=== PATIENT | female | born 1930 | race Caucasian/White ===

== ENCOUNTER 2016-10-06 13:46 | Outpatient (CLI) | payer MEDICARE, OTHER ==
[2016-03-19 09:27] VITALS: BMI 29.8
[~2016-10-06 13:46] MED LIST: ACETAMINOPHEN500 M1 PO; ATARAX 25 MG TA25 MG PO; ATIVAN1 MG PO; ATIVAN2 MG PO; CHROMIUM PICO200 MC1 PO; DIOVAN40 MG PO; ECOTRIN81 MG PO; EFFER-K 25 MEQ25 MEQ PO; HUMULIN 70100 UNIT/1; HUMULIN 70100 UNIT/1 SQ; MAG-OXIDE400 MG PO; MAXZIDE 75/501 TAB; MAXZIDE 75/501 TAB PO; MAXZIDE-25 MG T1 TAB PO; PEPCID20 MG PO; PROTONIX40 MG PO; REGLAN10 MG; STOOL SOFTENER240 MG PO; SURMONTIL50 MG OR
== END 2016-10-06 14:24 ==
LOC: D.MAMMO 13:46
DX: Z12.31 Encounter for screening mammogram for malignant neoplasm of breast (principal)

== ENCOUNTER 2016-12-13 22:23 | Observation (INO) | payer MEDICARE, OTHER ==
[~2016-12-13] VITALS: Ht 160 cm; Wt 65.9 kg
--- NOTE | ~2016-12-13 | CN ---
PATIENT NAME:JUNE AN MEDICAL RECORD: [id number] : 28 LOCATION:D. D.2126 ADMIT DATE: 12/14/16 ACCOUNT: [id number] CONSULTING PHYSICIAN: GIUSEPPE BRAR MD REFERRING PHYSICIAN: LUIS CARLOS PEREIRA MD DATE OF CONSULTATION: 12/14/2016 Cardiology Consultation DIAGNOSES: 1. Chest pain. 2. Hypertension. 3. Diabetes. HISTORY OF PRESENT ILLNESS: Mrs. An presents with chest pain. Her EKG is normal. Troponin is normal. She has been quite hypertensive since being here with her systolic blood pressure in the 180 range. For blood pressure, she is on Maxzide half tablet q. day and Diovan 40 mg tablet, she takes 1-1/2 tablets q. day. PHYSICAL EXAMINATION: GENERAL APPEARANCE: Well-nourished, well-developed, appears stated age. Level of distress, comfortable. PSYCHIATRIC: Mental status, alert, normal affect. Orientation, oriented to time, place and person. EYES: Lids and conjunctiva, noninjected. No discharge, no pallor. ENT: Lips, teeth, gums, normal dentition. Oropharynx, no cyanosis, no pallor. NECK: Carotid arteries, bilateral normal upstroke, no bruits, no thrills. JUGULAR VEINS: No jugular venous pressure or distention. CERVICAL LYMPH NODES: Nontender, nonenlarged. THYROID: Not enlarged. Nontender. No nodules. LUNGS: Respiratory effort, unlabored. CHEST: Normal curvature. No thoracic deformity. No chest wall tenderness. Percussion, resonant. Auscultation, clear. No wheezes, no rales, no rhonchi. CARDIOVASCULAR: Precordial exam, nondisplaced. No heaves or pericardial thrills. Rate and rhythm, regular. Heart sounds, normal S1, normal S2. No S3, no gallop, no rub. Systolic murmur, not heard. Diastolic murmur, not heard. EXTREMITIES: No cyanosis, no edema. Peripheral pulses, full and equal in all extremities, except as noted. No bruits appreciated. ABDOMEN: Soft, nondistended. Normal aorta. No bruit. Nontender. No masses. Liver, nontender, no hepatomegaly. Spleen, nontender, no splenomegaly. MUSCULOSKELETAL: No joint tenderness. No joint swelling. No erythema. NEUROLOGICAL: Normal gait, normal strength, normal tone. SKIN: Warm and dry. REVIEW OF SYSTEMS: The patient reports easy bruising but reports no swollen glands. The patient reports no fever, no night sweats, no significant weight gain, no significant weight loss. No significant exercise tolerance. The patient reports no dry eyes, no irritation, no vision change. Patient reports no difficulty hearing and no ear pain. Patient reports no frequent nose bleeds or nose and sinus problems. Patient reports on arm pain on exertion. No shortness of breath while lying down. No history of heart murmur. Patient reports no cough, no wheezing or coughing up blood. Patient reports no abdominal pain, no vomiting. Normal appetite. No diarrhea and not vomiting blood. No nausea and no constipation. Patient reports no incontinence. No CONSULT REPORT [id number] JUNE AN difficulty urinating. No hematuria. No increased frequency. Patient reports no muscle aches. No weakness, no arthralgias, no back pain. No swelling of the extremities. Patient reports no abnormal mole, no jaundice, no rashes. Reports no loss of consciousness. No weakness and no numbness. No seizures, dizziness, or headaches. The patient reports no depression, no sleep disturbance, feeling safe in a relationship and no alcohol abuse. Patient reports on fatigue. Reports no runny nose or sinus pressure. No itching, no hives, and no frequent sneezing. OVERALL IMPRESSION: Mrs. An has had a normal cardiac catheterization in the past. She has no EKG changes, and normal troponin. I could not say that this is secondary to ischemic heart disease, but I think the hkh-zl-awgcoam hypertension may be contributing to this. She is on a very low dose Diovan. We will try to increase her Diovan to get better blood pressure control, but at this point, I think this is all that is needed from a cardiovascular standpoint. TRANSINT:[id number] Voice Confirmation ID: [id number] DOCUMENT ID: [id number] GIUSEPPE BRAR MD CC: [id number] DICTATION DATE: 12/14/16 1547 STUDENT AFFAIRS VICE PRESIDENT: 12/14/162147 ADM IN [facility] [address] [place] [address]
[2016-12-13 22:57] LABS: BASOPHILS 0.5 % (0-2); EOSINOPHILS 0.6 % (0-7); HEMATOCRIT 40.6 % (36.0-48.0); HEMOGLOBIN 13.7 g/dL (12-16); IMMATURE GRANULOCYTES 0.4 % (0-5); LYMPHOCYTES 24.1 % (15-50); MCH 31.5 pg (26.0-34.0); MCHC 33.7 g/dL (31.0-37.0); MCV 93.3 fL (80.0-100.0); MEAN PLATELET VOLUME 8.9 fL (7.4-10.4); MONOCYTES 9.8 % (2-11); NEUTROPHILS 64.6 % (40-80); PLATELET COUNT 385 10x3/uL (130-400); RBC 4.35 10x6/uL (4.00-5.40); RDW 12.7 % (11.5-14.5); WBC 10.8 10x3/uL (4.8-10.8)
[2016-12-13 23:08] LABS: ALBUMIN 3.1 g/dL (3.4-5.0); ALKALINE PHOSPHATASE 60 U/L (46-116); ALT (SGPT) 25 U/L (10-68); BILIRUBIN - TOTAL 0.27 mg/dL (0.2-1.3); CALC OSMOLALITY 269 mosm/kg (275-300); CALCIUM 9.1 mg/dL (8.5-10.1); CARBON DIOXIDE 33.3 mmol/L (21.0-32.0); CHLORIDE - SERUM 95 mmol/L (98-107); GLUCOSE 123 mg/dL (74-106); POTASSIUM - SERUM 3.6 mmol/L (3.5-5.1); PROTEIN - SERUM 7.1 g/dL (6.4-8.2); SODIUM 132 mmol/L (136-145); UREA NITROGEN 24 mg/dL (7-18); eGFR NON AFRICAN AMERICAN 55 mL/min (90-120)
[2016-12-13 23:18] LABS: CHOL - HDL RATIO 2.9 ratio (2.3-4.1); CHOLESTEROL, TOTAL 178 mg/dL (0-200); CKMB 0.4 U/L (0.0-3.6); CREATINE KINASE 38 UL (21-215); HDL CHOLESTEROL 62 mg/dL (32-96); LDL CHOLESTEROL 103 mg/dL (0-100); LDL-HDL RATIO 1.7 ratio (1.5-3.5); TRIGLYCERIDE 67 mg/dL (30-200)
[2016-12-13 23:19] LABS: TROPONIN-I < 0.017 ng/mL (0.000-0.060)
[2016-12-14 03:10] LABS: APPEARANCE CLEAR (CLEAR); BILIRUBIN NEGATIVE (NEGATIVE); COLOR YELLOW (YELLOW); GLUCOSE NEGATIVE (NEGATIVE); KETONE NEGATIVE (NEGATIVE); LEUKOCYTE ESTERASE 1+ (NEGATIVE); NITRITE NEGATIVE (NEGATIVE); PROTEIN NEGATIVE (NEGATIVE); SPECIFIC GRAVITY 1.005 (1.005-1.020); UROBILINOGEN NORMAL (NORMAL)
[2016-12-14 03:12] LABS: BACTERIA FEW /hpf (NONE SEEN); EPITHELIAL CELLS 0-5 /hpf (0-5); RED CELLS - URINE NONE SEEN /hpf (0-5); WHITE CELLS - URINE 0-5 /hpf (0-5)
--- NOTE | 2016-12-14 03:55 | NUR ---
REPORT RECEIVED FROM MAO RICE.
--- NOTE | 2016-12-14 03:59 | NUR ---
ARRIVED TO FLOOR VIA WHEELCHAIR, ACCOMPANIED BY HOSPITAL STAFF. PLACED ON TELEMETRY, ORIENTED TO UNIT. WILL CONTINUE TO MONITOR, SEE NURSE ASSESSMENT. CALL LIGHT IN REACH.
[2016-12-14 04:00] VITALS: BP 173/77
[2016-12-14 05:05] LABS: CKMB 0.6 U/L (0.0-3.6); CREATINE KINASE 43 UL (21-215)
[2016-12-14 05:13] VITALS: BP 173/77; BMI 25.9
[2016-12-14 05:13] LABS: TROPONIN-I < 0.017 ng/mL (0.000-0.060)
--- NOTE | 2016-12-14 06:39 | NUR ---
NO CHANGES FROM PREVIOUS ASSESSMENT, CALL LIGHT IN REACH.
--- NOTE | 2016-12-14 08:11 | NUR ---
ASESSMENT DONE. DENIES NEEDS.
[2016-12-14 09:18] VITALS: BP 181/88
--- NOTE | 2016-12-14 09:58 | NUR ---
RESTS IN BED WITH CALL LIGHT IN REACH. FSBS 109.
[2016-12-14 11:01] LABS: CKMB 0.5 U/L (0.0-3.6); CREATINE KINASE 36 UL (21-215); TROPONIN-I < 0.017 ng/mL (0.000-0.060)
[2016-12-14 12:00] VITALS: BP 193/87
[2016-12-14 13:57] VITALS: Ht 160 cm; Wt 65.9 kg
[2016-12-14 16:00] VITALS: BP 179/96
[2016-12-14 16:09] LABS: CKMB 0.6 U/L (0.0-3.6); CREATINE KINASE 38 UL (21-215)
[2016-12-14 16:10] LABS: TROPONIN-I < 0.017 ng/mL (0.000-0.060)
--- NOTE | 2016-12-14 17:49 | NUR ---
WITHOUT CHANGES OR DIATRESS NOTED AT THIS TIME.
[2016-12-14 19:00] VITALS: BP 170/85
--- NOTE | 2016-12-14 19:27 | NUR ---
PT IN BED RESTING AROUSES TO VOICE. DENIES NEEDS AT THIS TIME WILL CONTINUE TO MONITOR
[2016-12-15] VITALS: BP 135/63
--- NOTE | 2016-12-15 03:30 | NUR ---
RESTING IN BED WITH NO DISTRESS. RESPS EVEN/NONLABORED. CPOC.
[2016-12-15 04:00] VITALS: BP 169/84
[2016-12-15 04:33] LABS: BASOPHILS 0.4 % (0-2); EOSINOPHILS 0.4 % (0-7); HEMATOCRIT 41.7 % (36.0-48.0); HEMOGLOBIN 14.2 g/dL (12-16); IMMATURE GRANULOCYTES 0.4 % (0-5); LYMPHOCYTES 16.4 % (15-50); MCH 31.4 pg (26.0-34.0); MCHC 34.1 g/dL (31.0-37.0); MCV 92.3 fL (80.0-100.0); MEAN PLATELET VOLUME 9.1 fL (7.4-10.4); MONOCYTES 11.2 % (2-11); NEUTROPHILS 71.2 % (40-80); PLATELET COUNT 378 10x3/uL (130-400); RBC 4.52 10x6/uL (4.00-5.40); RDW 12.7 % (11.5-14.5); WBC 11.1 10x3/uL (4.8-10.8)
[2016-12-15 04:40] LABS: ANION GAP 8.3 mmol/L (8-16); CALCIUM 9.3 mg/dL (8.5-10.1); CARBON DIOXIDE 33.5 mmol/L (21.0-32.0); CREATININE - SERUM 0.8 mg/dL (0.6-1.3); POTASSIUM - SERUM 3.8 mmol/L (3.5-5.1)
[2016-12-15] MEDS ORDERED: DIOVAN80 MG PO (06:58)
--- NOTE | 2016-12-15 07:03 | HP ---
PATIENT: JUNE LIANG MEDICAL RECORD: [id number] ACCOUNT: [id number] LOCATION:D. D.2126 : 28 ADMISSION DATE: 12/14/16 HISTORY AND PHYSICAL EXAMINATION DATE OF ADMISSION: 12/13/2016 CHIEF COMPLAINT: Substernal chest pain. HISTORY OF PRESENT ILLNESS: The patient is an 86-year-old female with longstanding history of having hyperlipidemia. She has also had cardiovascular disease. She is followed by Dr. Negro. The patient states over the last couple of days, she has had tightness in the chest. She presented complaining of nausea as well as tightness in her chest and felt the patient warranted admission. PAST MEDICAL HISTORY: Significant that she has had hypertension. She has also had anxiety, diabetes mellitus, hyperlipidemia, mitral valve prolapse, pacemaker placed, history of tachycardia. She has had varicose veins, vitamin D deficiency. She is a , AB1. FAMILY HISTORY: Father at 93 of old age; he had asthma. Mother at 87 of old age. SOCIAL HISTORY: The patient retired administrative associate. She is a . HABITS: None. 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 MEDICATIONS: Include aspirin 81 mg once a day. She is also on Colace 50 mg 1 p.o. b.i.d., Effer-K 10 mEq 4 p.o. q. day, lorazepam 1 mg tablet 2 every 6 hours p.r.n. anxiety, Monuril recently, NovoLog 70/30 of 15 units in the morning, 18 at noon, and 12 at night, triamterene 75/50, hydrochlorothiazide 1 p.o. q. day, and valsartan 40 mg one-half tablet once a day. ALLERGIES: NUMEROUS, SHE IS ALLERGIC TO AVANDIA, CIPRO, QVAR, DOXYCYCLINE, LEVAQUIN, LOVENOX, PENICILLIN, TOPROL, MACROBID. REVIEW OF SYSTEMS: CONSTITUTIONAL: She denies any headaches, seizures, or syncope. She denies change in visual or auditory acuity. PULMONARY: She denies any sputum production. She has had cough. She has had shortness of breath. CARDIOVASCULAR: She has had no chest pain, palpitations, PND or orthopnea. GASTROINTESTINAL: No chronic nausea, vomiting, melena or hematochezia. GENITOURINARY: No urgency, frequency, or dysuria. PHYSICAL EXAMINATION: GENERAL: Today, she is afebrile. VITAL SIGNS: Stable. Blood pressure slightly elevated at 170/70. HEENT: Her head is normocephalic. No lesions. Ears: TMs clear. Eyes: Pupils equal, round, reactive to light. Extraocular movements are intact. HISTORY AND PHYSICAL [id number] LIANG,JUNE WILHELMINE Nasal cavity, oral cavity, oropharynx clear. NECK: Supple. There is no adenopathy. HEART: Has a regular rate and rhythm without any murmurs, gallops or rubs. LUNGS: Clear. ABDOMEN: Soft, bowel sounds positive. No organomegaly. LABORATORY DATA: EKG showed normal sinus rhythm. ASSESSMENT: Substernal chest pain, history of arteriosclerotic heart disease, history of pacemaker placement, diabetes mellitus, hypertension, and anxiety. PLAN: The patient is admitted. Most likely, the patient will need to proceed with cardiac catheterization. Cardiology consultation will be obtained. TRANSINT:[id number] Voice Confirmation ID: [id number] DOCUMENT ID: [id number] LUIS CARLOS PEREIRA MD at 0703 CC: [id number] DICTATION DATE: 12/14/16 08 HEEL VARNISHER: 12/14/16 1100 [place] [address]
[2016-12-15 08:10] VITALS: BP 168/77
--- NOTE | 2016-12-15 08:20 | NUR ---
ASSESSMENT DONE. DENIES NEEDS.
--- NOTE | 2016-12-15 10:11 | NUR ---
RESTS IN BED. CALL LIGHT IN REACH WILL CONT. PLAN OF CARE.
[2016-12-15 12:04] VITALS: BP 168/79
--- NOTE | 2016-12-15 14:01 | NUR ---
DC GIVEN TO PT
--- NOTE | 2016-12-15 14:11 | NUR ---
DC HOME PER PERSONAL CAR
== END 2016-12-15 14:11 | disposition home or self-care (01) ==
LOC: D.ER 22:23 → OBSVTIME 12-14 03:48 → D.M2 12-14 03:48
PROVIDERS: Family Medicine; ADMIT Family Medicine
DX: I10 Essential (primary) hypertension (principal); R07.9 Chest pain, unspecified; E78.5 Hyperlipidemia, unspecified; F41.9 Anxiety disorder, unspecified; E11.9 Type 2 diabetes mellitus without complications; I34.1 Nonrheumatic mitral (valve) prolapse; Z95.0 Presence of cardiac pacemaker; I25.10 Atherosclerotic heart disease of native coronary artery without angina pectoris

== ENCOUNTER → 2017-03-09 13:28 | Outpatient (CLI) | payer MEDICARE, OTHER ==
[2016-12-14 13:57] VITALS: BMI 25.8
[~2017-03-09 13:28] MED LIST changes: +DIOVAN80 MG PO
== END | disposition home or self-care (01) ==
LOC: D.CT 13:28
DX: R51 Headache (principal)

== ENCOUNTER 2017-06-24 06:46 | Emergency (ER) | payer MEDICARE, OTHER ==
[2016-12-14 13:57] VITALS: BMI 25.8
[2017-06-24 07:38] LABS: BASOPHILS 0.5 % (0-2); EOSINOPHILS 0.6 % (0-7); HEMATOCRIT 41.3 % (36.0-48.0); IMMATURE GRANULOCYTES 0.2 % (0-5); LYMPHOCYTES 14.1 % (15-50); MCH 31.5 pg (26.0-34.0); MCHC 33.9 g/dL (31.0-37.0); MCV 92.8 fL (80.0-100.0); MEAN PLATELET VOLUME 9.4 fL (7.4-10.4); MONOCYTES 11.1 % (2-11); NEUTROPHILS 73.5 % (40-80); PLATELET COUNT 391 10x3/uL (130-400); RBC 4.45 10x6/uL (4.00-5.40); RDW 12.5 % (11.5-14.5); WBC 8.7 10x3/uL (4.8-10.8)
[2017-06-24 07:53] LABS: ALBUMIN 3.4 g/dL (3.4-5.0); BILIRUBIN - TOTAL 0.43 mg/dL (0.2-1.3); CALCIUM 9.4 mg/dL (8.5-10.1); CARBON DIOXIDE 31.2 mmol/L (21.0-32.0); CREATININE - SERUM 0.9 mg/dL (0.6-1.3); POTASSIUM - SERUM 4.2 mmol/L (3.5-5.1); PROTEIN - SERUM 7.5 g/dL (6.4-8.2)
[2017-06-24 07:56] LABS: APPEARANCE CLEAR (CLEAR); BACTERIA FEW /hpf (NONE SEEN); BILIRUBIN NEGATIVE (NEGATIVE); COLOR YELLOW (YELLOW); EPITHELIAL CELLS OCC /hpf (0-5); GLUCOSE 100 mg/dL (NEGATIVE); KETONE NEGATIVE (NEGATIVE); NITRITE NEGATIVE (NEGATIVE); PROTEIN NEGATIVE (NEGATIVE); SPECIFIC GRAVITY 1.005 (1.005-1.020); UROBILINOGEN NORMAL (NORMAL); WHITE CELLS - URINE 0-5 /hpf (0-5)
== END 2017-06-24 08:44 | disposition home or self-care (01) ==
LOC: D.ER 06:46
PROVIDERS: Emergency Medicine; Family Medicine
DX: K59.00 Constipation, unspecified (principal); Z85.01 Personal history of malignant neoplasm of esophagus; Z85.07 Personal history of malignant neoplasm of pancreas; Z85.51 Personal history of malignant neoplasm of bladder; I10 Essential (primary) hypertension; E11.9 Type 2 diabetes mellitus without complications; Z79.4 Long term (current) use of insulin; Z95.0 Presence of cardiac pacemaker

== ENCOUNTER 2017-08-10 14:34 | Emergency (ER) | payer MEDICARE, OTHER ==
[2016-12-14 13:57] VITALS: BMI 25.8
[2017-08-10 15:27] LABS: BASOPHILS 0.4 % (0-2); EOSINOPHILS 0.7 % (0-7); HEMATOCRIT 42.3 % (36.0-48.0); HEMOGLOBIN 14.4 g/dL (12-16); IMMATURE GRANULOCYTES 0.1 % (0-5); LYMPHOCYTES 22.6 % (15-50); MCH 31.6 pg (26.0-34.0); MCV 92.8 fL (80.0-100.0); MEAN PLATELET VOLUME 9.2 fL (7.4-10.4); NEUTROPHILS 64.2 % (40-80); PLATELET COUNT 391 10x3/uL (130-400); RBC 4.56 10x6/uL (4.00-5.40); RDW 12.7 % (11.5-14.5); WBC 9.6 10x3/uL (4.8-10.8)
[2017-08-10 16:17] LABS: ALBUMIN 3.5 g/dL (3.4-5.0); ANION GAP 14.8 mmol/L (8-16); BILIRUBIN - TOTAL 0.25 mg/dL (0.2-1.3); CALCIUM 9.8 mg/dL (8.5-10.1); CARBON DIOXIDE 29.8 mmol/L (21.0-32.0); POTASSIUM - SERUM 3.6 mmol/L (3.5-5.1); PROTEIN - SERUM 7.2 g/dL (6.4-8.2)
[2017-08-10 16:27] LABS: APPEARANCE CLEAR (CLEAR); BILIRUBIN NEGATIVE (NEGATIVE); COLOR YELLOW (YELLOW); GLUCOSE NEGATIVE (NEGATIVE); KETONE NEGATIVE (NEGATIVE); NITRITE NEGATIVE (NEGATIVE); PROTEIN NEGATIVE (NEGATIVE); SPECIFIC GRAVITY 1.005 (1.005-1.020); UROBILINOGEN NORMAL (NORMAL)
== END 2017-08-10 20:20 | disposition home or self-care (01) ==
LOC: D.ER 14:34
PROVIDERS: Emergency Medicine
DX: K59.00 Constipation, unspecified (principal); Z85.01 Personal history of malignant neoplasm of esophagus; Z85.07 Personal history of malignant neoplasm of pancreas; Z85.51 Personal history of malignant neoplasm of bladder; I10 Essential (primary) hypertension; E11.9 Type 2 diabetes mellitus without complications; Z79.4 Long term (current) use of insulin; Z95.0 Presence of cardiac pacemaker

== ENCOUNTER → 2017-10-28 19:39 | Outpatient (CLI) | payer MEDICARE, OTHER ==
[2016-12-14 13:57] VITALS: BMI 25.8
== END | disposition home or self-care (01) ==
LOC: D.MAMMO 14:30
DX: Z12.31 Encounter for screening mammogram for malignant neoplasm of breast (principal)

== ENCOUNTER 2018-02-14 15:20 | Emergency (ER) | payer MEDICARE, OTHER ==
[~2018-02-14] VITALS: Ht 160 cm; Wt 63.6 kg
[~2018-02-14 15:20] MED LIST changes: -MAXZIDE 75/501 TAB
[2018-02-14 15:31] VITALS: Ht 160 cm; Wt 63.6 kg
[2018-02-14] MEDS ORDERED: LASIX40 MG PO (15:39)
[2018-02-14 16:51] LABS: BASOPHILS 0.6 % (0-2); EOSINOPHILS 1.9 % (0-7); HEMATOCRIT 39.6 % (36.0-48.0); HEMOGLOBIN 13.3 g/dL (12-16); IMMATURE GRANULOCYTES 0.1 % (0-5); LYMPHOCYTES 21.8 % (15-50); MCH 31.2 pg (26.0-34.0); MCHC 33.6 g/dL (31.0-37.0); MEAN PLATELET VOLUME 9.6 fL (7.4-10.4); MONOCYTES 17.3 % (2-11); NEUTROPHILS 58.3 % (40-80); PLATELET COUNT 376 10x3/uL (130-400); RBC 4.26 10x6/uL (4.00-5.40); RDW 12.9 % (11.5-14.5); WBC 8.3 10x3/uL (4.8-10.8)
[2018-02-14 16:59] LABS: INR 0.94 (0.85-1.17); PROTIME 12.1 SECONDS (11.6-15.0)
[2018-02-14 17:01] LABS: D-DIMER-QUANTITATIVE 0.7 ug/mLFEU (0.20-0.54)
[2018-02-14 17:14] LABS: ALBUMIN 3.1 g/dL (3.4-5.0); ALKALINE PHOSPHATASE 59 U/L (46-116); ALT (SGPT) 18 U/L (10-68); BILIRUBIN - TOTAL 0.18 mg/dL (0.2-1.3); CALC OSMOLALITY 276 mosm/kg (275-300); CALCIUM 9.4 mg/dL (8.5-10.1); CARBON DIOXIDE 32.8 mmol/L (21.0-32.0); CHLORIDE - SERUM 96 mmol/L (98-107); CREATININE - SERUM 0.9 mg/dL (0.6-1.3); POTASSIUM - SERUM 3.5 mmol/L (3.5-5.1); PROTEIN - SERUM 6.9 g/dL (6.4-8.2); SODIUM 135 mmol/L (136-145); UREA NITROGEN 15 mg/dL (7-18); eGFR NON AFRICAN AMERICAN 62 mL/min (90-120)
[2018-02-14 17:19] LABS: GLUCOSE 206 mg/dL (74-106)
[2018-02-14 17:26] LABS: CKMB 1.7 U/L (0.0-3.6); CREATINE KINASE 53 UL (21-215)
[2018-02-14 17:36] LABS: TROPONIN-I < 0.017 ng/mL (0.000-0.060)
[2018-02-14 18:45] LABS: APPEARANCE CLEAR (CLEAR); BILIRUBIN NEGATIVE (NEGATIVE); COLOR YELLOW (YELLOW); GLUCOSE NEGATIVE (NEGATIVE); KETONE NEGATIVE (NEGATIVE); NITRITE NEGATIVE (NEGATIVE); PROTEIN NEGATIVE (NEGATIVE); SPECIFIC GRAVITY 1.005 (1.005-1.020); UROBILINOGEN NORMAL (NORMAL)
[2018-02-14 19:45] VITALS: BP 180/82
== END 2018-02-14 22:40 | disposition home or self-care (01) ==
LOC: D.ER 15:20
PROVIDERS: Emergency Medicine
DX: R51 Headache (principal); G89.29 Other chronic pain

== ENCOUNTER 2018-02-18 07:52 | Inpatient (IN) | payer MEDICARE, OTHER ==
[~2018-02-18] VITALS: Ht 160 cm; Wt 59.6 kg
--- NOTE | ~2018-02-18 | MORECARE ---
CASE MANAGEMENT DISCHARGE SUMMARY PATIENT: JUNE LIANG UNIT: [id number] ADM DATE: 02/18/18 AGE: 87 : 29 SEX: F ROOM/BED: D.2111 AUTHOR: MINISTERIO WALKER PHYSICIAN: REFERRING PHYSICIAN: LUIS CARLOS PEREIRA MD DATE OF SERVICE: 02/18/18 Discharge Plan Patient Name: JUNE LIANG Facility: [facility]:[place] : 1930 Planned Disposition: Anticipated Discharge Date: Discharge Date: Expected LOS: Initial Reviewer: [email or web address] Initial Review Date: 02/18/2018 Generated: 02/18/18 7:29 pm Patient Name: JUNE LIANG Page [id number] at 1829 All edits/amendments must be made on the electronic document DICTATION DATE: 02/18/181828 FRUIT GRADER: HEATH 02/18/181828 RPT#: [id number] DC DATE: STATUS: ADM IN [facility] [address] [place] [address] END OF REPORT
--- NOTE | ~2018-02-18 | MORECARE ---
CASE MANAGEMENT DISCHARGE SUMMARY PATIENT: JUNE LIANG UNIT: [id number] ADM DATE: 02/18/18 AGE: 87 : 29 SEX: F ROOM/BED: D.5586 AUTHOR: DENISE,DOC PHYSICIAN: REFERRING PHYSICIAN: LUIS CARLOS PEREIRA MD DATE OF SERVICE: 02/21/18 Discharge Plan Patient Name: JUNE LIANG Facility: [facility]:[place] : 1930 Planned Disposition: Anticipated Discharge Date: Discharge Date: Expected LOS: Initial Reviewer: [email or web address] Initial Review Date: 02/18/2018 Generated: 02/21/18 5:56 pm Comments DCP- Discharge Planning Updated by [email or web address]: Nicolas Lerner on 02/21/18 3:[address] Patient Name: JUNE LIANG Admission Status: ER Accout number: [id number] Admission Date: 02-18-2018 : 1930 Admission Diagnosis: Attending: LUIS CARLOS PEREIRA Current LOS: 3 Anticipated DC Date: Planned Disposition: [facility] F[facility]ILITY Primary Insurance: MEDICARE A & B PLANNED EXTERNAL PROVIDER: WAITING PT'S DECISION Discharge Planning Comments: CM RECEIVED ORDER FOR INPATIENT REHAB, MET WITH PT IN ROOM TO DISCUSS DISCHARGE PLANNING AND NEEDS. PT REPORTS LIVING AT HOME INDEPENDENTLY AND ALONE AT [facility]. PT HAS A CANE WITH NO MEDICAL EQUIPMENT PROVIDER PREFERENCE. PT HAS PRIVATE DUTY CAREGIVER THAT WORKS BY THE HOUR NEEDED THAT PT PAYS VIEYRA FOR SERVICES NEEDED. CM DISCUSSED AVAILABILITY OF HOME HEALTH, REHAB SERVICES AND MEDICAL EQUIPMENT. PT WANTS REHAB AT [place] AND NO WHERE ELSE. PT REPORTS HER PAID CAREGIVER WILL PICK HER UP FOR DISCHARGE HOME. IMPORTANT MESSAGE FROM MEDICARE PROVIDED AND EXPLAINED. CM RECEIVED CALL FROM SUJATHA OF INPATIENT REHAB, PT HAS WALKED 500 FEET WITH THERAPY WHO HAS SIGNED OFF TO NURSING, PT WILL NOT BE ACCEPTED FOR INPATIENT REHAB. CM MET WITH PT WHO ALSO REPORTS GOING TO THE BATHROOM IN THE ROOM INDEPENDENTLY. CM EXPLAINED DECLINATION, DISCUSSED OUTPATIENT THERAPY, HOME HEALTH PHYSICAL THERAPY AND SHELTER FACILITY THERAPY. PT REPORTS BEING IN TOO MUCH PAIN TO GO HOME AND WILL CONSIDER HER OPTIONS AND LET CM KNOW SOON POSSIBLE. PT IS CONSIDERING SHELTER REHAB, REPORTS BEING IN TOO MUCH PAIN TO GO HOME BUT DID NOT WANT TO MAKE DECISION REGARDING FACILITY PREFERENCE TODAY. CM TO CONTINUE TO FOLLOW AND ASSIST NEEDED. Sliver Machine Operator: Nicolas Lerner DCPIA - Discharge Planning Initial Assessment Updated by [email or web address]: Nicolas Lerner on 02/21/18 4:39 pm * Is the patient Alert and Oriented? Yes * How many steps to enter\exit or inside your home? NONE * PCP DR. PEREIRA * Pharmacy [facility]. * Preadmission Environment Home Alone * ADLs Independent * Equipment Cane * Other Equipment NO MEDICAL EQUIPMENT PROVIDER PREFERENCE * List name and contact numbers for known caregivers / representatives who currently or will assist patient after discharge: LATOYA CRISTAL, SON, WALE LIANG, SON, * Verbal permission to speak to the caregivers and representatives has been obtained from the patient. N/A * Community resources currently utilized Private Duty Care * Please name any agencies selected above. PRIVATE EXERCISE PLANNER * Additional services required to return to the preadmission environment? Yes * Can the patient safely return to the preadmission environment? Yes * Has this patient been hospitalized within the prior 30 days at any hospital? No Coverage Notice Reviewer: [email or web address] - Nicolas Lerner Notice Issued Date-Time: 02/21/2018 15:00 Notice Type: IM Discharge Notice Notice Delivered To: Patient Relationship to Patient: Process Safety Specialist Name: Delivery Method: HAND - Hand Delivered Florence Days: Prior Verbal Notification: Recipient Understood Notice: Yes Recipient Signature: Yes Med Rec Note Co-signed by Attending: Coverage Notice Comment: Last DP export: 02/21/18 3:46 Patient Name: JUNE LIANG Page [id number] at 1656 All edits/amendments must be made on the electronic document DICTATION DATE: 02/21/181655 TUBE BENDER HAND: HEATH 02/21/181655 RPT#: [id number] [place] DATE: STATUS: ADM IN [facility] [address] [place] [address] END OF REPORT
--- NOTE | ~2018-02-18 | MORECARE ---
CASE MANAGEMENT DISCHARGE SUMMARY PATIENT: JUNE LIANG UNIT: [id number] ADM DATE: 02/18/18 AGE: 87 : 29 SEX: F ROOM/BED: D.2111 AUTHOR: DENISE,DOC PHYSICIAN: REFERRING PHYSICIAN: LUIS CARLOS PEREIRA MD DATE OF SERVICE: 02/22/18 Discharge Plan Patient Name: JUNE LIANG Facility: [facility]:[place] : 1930 Planned Disposition: Care Home Facility Anticipated Discharge Date: 02/22/18 Discharge Date: Expected LOS: 4 Initial Reviewer: [email or web address] Initial Review Date: 02/18/2018 Generated: 02/22/18 10:17 am Comments DCP- Discharge Planning Updated by [email or web address]: Nicolas Lerner on 02/22/18 8:[address] Patient Name: JUNE LIANG Encounter No: [id number] : 1930 Primary Insurance: MEDICARE A & B Anticipated DC Date: 02-22-2018 Planned Disposition: Care Home Facility External Planned Provider: [facility], MEDICARE REHAB BED DCP follow-up note: CM RECEIVED DISCHARGE ORDER, SPOKE TO BEDSIDE NURSE WHO REPORTS PT HAVING CONCERN OF DISCHARGE TODAY AND WANTS PLACEMENT AT [facility] FOR REHAB TODAY. CM MET WITH PT IN ROOM, PT WANTS REHAB AT [facility] PRIOR TO RETURN HOME. CHOICE SIGNED. CM NOTIFIED CORINTH OF [facility], , OF REHAB REFERRAL WITH DISCHARGE ORDER ALREADY IN FOR TODAY. CM FAXED REFERRAL TO [facility] VIA [facility] AT [phone]. CM WAITING ADMISSION DETERMINATION FROM [facility] FOR REHAB ADMISSION TODAY. Nicolas Lerner, CASE CRISTAL DCP- Discharge Planning Updated by [id number]: Nicolas Lerner on 02/21/18 3:[address] Patient Name: JUNE LIANG Admission Status: ER Accout number: [id number] Admission Date: 02-18-2018 : 1930 Admission Diagnosis: Attending: LUIS CARLOS PEREIRA Current LOS: 3 Anticipated DC Date: Planned Disposition: [facility] Primary Insurance: MEDICARE A & B PLANNED EXTERNAL PROVIDER: WAITING PT'S DECISION Discharge Planning Comments: CM RECEIVED ORDER FOR INPATIENT REHAB, MET WITH PT IN ROOM TO DISCUSS DISCHARGE PLANNING AND NEEDS. PT REPORTS LIVING AT HOME INDEPENDENTLY AND ALONE AT [facility]. PT HAS A CANE WITH NO MEDICAL EQUIPMENT PROVIDER PREFERENCE. PT HAS PRIVATE DUTY CAREGIVER THAT WORKS BY THE HOUR NEEDED THAT PT PAYS VIEYRA FOR SERVICES NEEDED. CM DISCUSSED AVAILABILITY OF HOME HEALTH, REHAB SERVICES AND MEDICAL EQUIPMENT. PT WANTS REHAB AT [place] AND NO WHERE ELSE. PT REPORTS HER PAID CAREGIVER WILL PICK HER UP FOR DISCHARGE HOME. IMPORTANT MESSAGE FROM MEDICARE PROVIDED AND EXPLAINED. CM RECEIVED CALL FROM SUJATHA OF INPATIENT REHAB, PT HAS WALKED 500 FEET WITH THERAPY WHO HAS SIGNED OFF TO NURSING, PT WILL NOT BE ACCEPTED FOR INPATIENT REHAB. CM MET WITH PT WHO ALSO REPORTS GOING TO THE BATHROOM IN THE ROOM INDEPENDENTLY. CM EXPLAINED DECLINATION, DISCUSSED OUTPATIENT THERAPY, HOME HEALTH PHYSICAL THERAPY AND [facility] THERAPY. PT REPORTS BEING IN TOO MUCH PAIN TO GO HOME AND WILL CONSIDER HER OPTIONS AND LET CM KNOW SOON POSSIBLE. PT IS CONSIDERING [facility], REPORTS BEING IN TOO MUCH PAIN TO GO HOME BUT DID NOT WANT TO MAKE DECISION REGARDING FACILITY PREFERENCE TODAY. CM TO CONTINUE TO FOLLOW AND ASSIST NEEDED. Production Assembly Supervisor: Nicolas Lerner DCPIA - Discharge Planning Initial Assessment Updated by [id number]: Nicolas Lerner on 02/21/18 4:39 pm * Is the patient Alert and Oriented? Yes * How many steps to enter\exit or inside your home? NONE * PCP DR. PEREIRA * Pharmacy [facility]. * Preadmission Environment Home Alone * ADLs Independent * Equipment Cane * Other Equipment NO MEDICAL EQUIPMENT PROVIDER PREFERENCE * List name and contact numbers for known caregivers / representatives who currently or will assist patient after discharge: LATOYA RODRIGUEZCRISTAL, SON, WALE LIANG, SON, * Verbal permission to speak to the caregivers and representatives has been obtained from the patient. N/A * Community resources currently utilized Private Duty Care * Please name any agencies selected above. PRIVATE CLINICAL AUDIOLOGIST * Additional services required to return to the preadmission environment? Yes * Can the patient safely return to the preadmission environment? Yes * Has this patient been hospitalized within the prior 30 days at any hospital? No Coverage Notice Reviewer: [email or web address] Jimmy Lerner Notice Issued Date-Time: 02/21/2018 15:00 Notice Type: IM Discharge Notice Notice Delivered To: Patient Relationship to Patient: Kettle Operator Head Name: Delivery Method: HAND - Hand Delivered Florence Days: Prior Verbal Notification: Recipient Understood Notice: Yes Recipient Signature: Yes Med Rec Note Co-signed by Attending: Coverage Notice Comment: Reviewer: [email or web address] Jimmy Lerner Notice Issued Date-Time: 02/22/2018 8:40 Notice Type: Patient Choice Letter Notice Delivered To: Patient Relationship to Patient: Kettle Operator Head Name: Delivery Method: HAND - Hand Delivered Florence Days: Prior Verbal Notification: Recipient Understood Notice: Yes Recipient Signature: Yes Med Rec Note Co-signed by Attending: Coverage Notice Comment: Last DP export: 02/22/18 8:03 Patient Name: JUNE LIANG Page 48001 at 0917 All edits/amendments must be made on the electronic document DICTATION DATE: 02/22/18916 ASSEMBLER GOLF WOOD HEAD: HEATH 02/22/18916 RPT#: [id number] DC DATE: STATUS: ADM IN [facility] [address] [place] [address] END OF REPORT
--- NOTE | ~2018-02-18 | HP ---
PATIENT: JUNE LIANG MEDICAL RECORD: [id number] ACCOUNT: [id number] LOCATION:[address] : [birth year] ADMISSION DATE: 02/18/18 PCP: LUIS CARLOS PEREIRA MD HISTORY AND PHYSICAL EXAMINATION HISTORY OF PRESENT ILLNESS: An 87-year-old female admitted to the Emergency Room brought in by EMS for reported progressive weakness, right hip and thigh pain times 1 week, progressively worse. Reports her to being nonambulatory presently. PAST MEDICAL HISTORY: Anxiety, hypertension, pacemaker placement, prior right hip replacement, advanced age, and progressive decline. CURRENT MEDICATIONS: Listed as Lasix 40 mg daily, insulin 70/30 q.12 hours, Tylenol p.r.n., lorazepam 2 mg q.6 hours p.r.n. anxiety, triamterene/hydrochlorothiazide 75/50 daily, potassium 40 mEq daily, and stool softener. REVIEW OF SYSTEMS: NUMEROUS ALLERGIES PER CHART. REVIEW OF SYSTEMS: GENERAL: No reported change in weight or appetite. HEENT: No cephalgia, visual changes, tinnitus, epistaxis, or dysphagia. CARDIOVASCULAR: Denies chest pain, denies palpitation. Does admit progressive weakness. PULMONARY: Denies hemoptysis, denies night sweats. GASTROINTESTINAL: Denies hematemesis, hematochezia or melena. GENITOURINARY: Denies dysuria. MUSCULOSKELETAL: Right hip pain, right lower extremity weakness. Reports injury earlier this week, getting a CT scan with transfer from wheelchair to the table, does have a prior right hip replacement. PHYSICAL EXAMINATION: VITAL SIGNS: Temp 97.9, blood pressure 175/75, heart rate 70, respirations 18, O2 sat 98% room air. Note, her blood pressure medications have not been restarted since she came into the Emergency Room. HEENT: Normocephalic, atraumatic. Eyes: Pupils are equally round and reactive to light and accommodation. Extraocular muscles intact. Conjunctiva was not injected. Ears: Canals patent, TMs are intact. Nose: Nares patent without drainage. Throat: No erythema, no exudates. NECK: Supple. No lymphadenopathy. HEART: Regular rate and rhythm. No S3, S4, no rub. LUNGS: Clear to auscultation bilaterally. Breathing is nonlabored. ABDOMEN: Soft, nontender. Bowel sounds all 4 quadrants. EXTREMITIES: Present times 4. Right lateral hip tenderness. No gross deformity, no ecchymosis, no erythema, no sign of trauma. LABORATORY DATA: CBC: White count 10.6, hemoglobin 13.7, hematocrit 39.7, platelets 371. Chemistry with sodium 134, potassium 3.4, chloride 96, bicarb 31, BUN 16, creatinine 0.8, glucose 123. Troponin is less than 0.017. ProBNP is 60, lipase 96. TSH 0.72. Chest x-ray: No acute abnormalities. X-ray right hip intact-appearing bilateral total hip arthroplasty. No acute osseous abnormality seen. ASSESSMENT AND PLAN: HISTORY AND PHYSICAL [id number] JUNE LIANG 1. Right hip pain. We will consult physical therapy assess range of motion tolerance, may benefit from rehab placement. 2. Diabetes. Resume home medication. We will add low-dose sliding scale insulin. 3. Hypertension, restart home medications. 4. Anxiety, restart the patient's alprazolam, monitor. The patient does not want any heroic measures should it come to that, she wants to be DNR code status. We will comply with her wishes and obtain necessary paperwork, supportive care. TRANSINT:[id number] Voice Confirmation ID: [id number] DOCUMENT ID: [id number] LATOYA MARIE DO at 0812 CC: [id number] DICTATION DATE: 02/18/181702 SOFTWARE TECHNICIAN: 02/18/182004 DIS IN 02/22/18 [id number] [place] [address]
--- NOTE | ~2018-02-18 | MORECARE ---
CASE MANAGEMENT DISCHARGE SUMMARY PATIENT: JUNE LIANG UNIT: [id number] ADM DATE: 02/18/18 AGE: 87 : 29 SEX: F ROOM/BED: D.2111 AUTHOR: MINISTERIO WALKER PHYSICIAN: REFERRING PHYSICIAN: LUIS CARLOS PEREIRA MD DATE OF SERVICE: 02/21/18 Discharge Plan Patient Name: JUNE LIANG Facility: [facility]:[place] : 1930 Planned Disposition: Anticipated Discharge Date: Discharge Date: Expected LOS: Initial Reviewer: [email or web address] Initial Review Date: 02/18/2018 Generated: 02/21/18 5:19 pm Last DP export: 02/18/18 5:29 Patient Name: JUNE LIANG Page [id number] at 1619 All edits/amendments must be made on the electronic document DICTATION DATE: 02/21/18 161 MANAGER CAFE: HEATH 02/21/18 161 RPT#: [id number] DC DATE: STATUS: ADM IN [facility] [address] [place] [address] END OF REPORT
--- NOTE | ~2018-02-18 | MORECARE ---
CASE MANAGEMENT DISCHARGE SUMMARY PATIENT: JUNE LIANG UNIT: [id number] ADM DATE: 02/18/18 AGE: 87 : 29 SEX: F ROOM/BED: D.2111 AUTHOR: DENISE,DOC PHYSICIAN: REFERRING PHYSICIAN: LUIS CARLOS PEREIRA MD DATE OF SERVICE: 02/22/18 Discharge Plan Patient Name: JUNE LIANG Facility: [facility]:[place] : 1930 Planned Disposition: Group Home Facility Anticipated Discharge Date: 02/22/18 Discharge Date: Expected LOS: 4 Initial Reviewer: [id number] Initial Review Date: 02/18/2018 Generated: 02/22/18 2:34 pm Comments DCP- Discharge Planning Updated by [email or web address]: Nicolas Lerner on 02/22/18 12:[address] Patient Name: JUNE LIANG Encounter No: [id number] : 1930 Primary Insurance: MEDICARE A & B Anticipated DC Date: 02-22-2018 Planned Disposition: Group Home Facility External Planned Provider: :[facility], MEDICARE REHAB BED DCP follow-up note: CM RECEIVED CALL FROM [facility], THEY WILL ACCEPT PT AT [facility] FOR REHAB TODAY. CM NOTIFIED PT IN ROOM WHO IS IN AGREEMENT WITH DISCHARGE TO REHAB AT [facility] TODAY. PT ASKED CM TO CALL HER SON NICOLAS. CM CALLED AND NOTIFIED NICOLAS LIANG, . COKE HANDLING SUPERVISOR NURSE NOTIFIED. CM FAXED DISCHARGE INFORMATION TO [facility] VIA [employer] AT [phone]. NURSE REPORT TO BE CALLED TO [facility], , [facility] TO ARRANGE VAN TRANSPORTATION. Nicolas Lerner, KATIE BEE DCP- Discharge Planning Updated by [email or web address]: Nicolas Lerner on 02/22/18 8:[address] Patient Name: JUNE LIANG Encounter No: [id number] : 1930 Primary Insurance: MEDICARE A & B Anticipated DC Date: 02-22-2018 Planned Disposition: Group Home Facility External Planned Provider: [facility], MEDICARE REHAB BED DCP follow-up note: CM RECEIVED DISCHARGE ORDER, SPOKE TO BEDSIDE NURSE WHO REPORTS PT HAVING CONCERN OF DISCHARGE TODAY AND WANTS PLACEMENT AT THE [facility] FOR REHAB TODAY. CM MET WITH PT IN ROOM, PT WANTS REHAB AT [facility] PRIOR TO RETURN HOME. CHOICE SIGNED. CM NOTIFIED EDITA OF [facility], , OF REHAB REFERRAL WITH DISCHARGE ORDER ALREADY IN FOR TODAY. CM FAXED REFERRAL TO [facility] VIA [employer] AT [phone]. CM WAITING ADMISSION DETERMINATION FROM THE [facility] FOR REHAB ADMISSION TODAY. Nicolas Lerner, CASE MANAGEMENT DCP- Discharge Planning Updated by [email or web address]: Nicolas Lerner on 02/21/18 3:[address] Patient Name: JUNE LIANG Admission Status: ER Accout number: [id number] Admission Date: 02-18-2018 : 1930 Admission Diagnosis: Attending: LUIS CARLOS PEREIRA Current LOS: 3 Anticipated DC Date: Planned Disposition: [facility] FACILITY Primary Insurance: MEDICARE A & B PLANNED EXTERNAL PROVIDER: WAITING PT'S DECISION Discharge Planning Comments: CM RECEIVED ORDER FOR INPATIENT REHAB, MET WITH PT IN ROOM TO DISCUSS DISCHARGE PLANNING AND NEEDS. PT REPORTS LIVING AT HOME INDEPENDENTLY AND ALONE AT [facility]. PT HAS A CANE WITH NO MEDICAL EQUIPMENT PROVIDER PREFERENCE. PT HAS PRIVATE DUTY CAREGIVER THAT WORKS BY THE HOUR NEEDED THAT PT PAYS VIEYRA FOR SERVICES NEEDED. CM DISCUSSED AVAILABILITY OF HOME HEALTH, REHAB SERVICES AND MEDICAL EQUIPMENT. PT WANTS REHAB AT [place] AND NO WHERE ELSE. PT REPORTS HER PAID CAREGIVER WILL PICK HER UP FOR DISCHARGE HOME. IMPORTANT MESSAGE FROM MEDICARE PROVIDED AND EXPLAINED. CM RECEIVED CALL FROM SUJATHA OF INPATIENT REHAB, PT HAS WALKED 500 FEET WITH THERAPY WHO HAS SIGNED OFF TO NURSING, PT WILL NOT BE ACCEPTED FOR INPATIENT REHAB. CM MET WITH PT WHO ALSO REPORTS GOING TO THE BATHROOM IN THE ROOM INDEPENDENTLY. CM EXPLAINED DECLINATION, DISCUSSED OUTPATIENT THERAPY, HOME HEALTH PHYSICAL THERAPY AND [facility] FACILITY THERAPY. PT REPORTS BEING IN TOO MUCH PAIN TO GO HOME AND WILL CONSIDER HER OPTIONS AND LET CM KNOW SOON POSSIBLE. PT IS CONSIDERING HALFWAY REHAB, REPORTS BEING IN TOO MUCH PAIN TO GO HOME BUT DID NOT WANT TO MAKE DECISION REGARDING FACILITY PREFERENCE TODAY. CM TO CONTINUE TO FOLLOW AND ASSIST NEEDED. Global Position System Technician: Nicolas Lerner DCPIA - Discharge Planning Initial Assessment Updated by [email or web address]: Nicolas Lerner on 02/21/18 4:39 pm * Is the patient Alert and Oriented? Yes * How many steps to enter\exit or inside your home? NONE * PCP DR. PEREIRA * Pharmacy [facility]. * Preadmission Environment Home Alone * ADLs Independent * Equipment Cane * Other Equipment NO MEDICAL EQUIPMENT PROVIDER PREFERENCE * List name and contact numbers for known caregivers / representatives who currently or will assist patient after discharge: LATOYA MARY, SON, WALE LIANG, SON, * Verbal permission to speak to the caregivers and representatives has been obtained from the patient. N/A * Community resources currently utilized Private Duty Care * Please name any agencies selected above. [employer] * Additional services required to return to the preadmission environment? Yes * Can the patient safely return to the preadmission environment? Yes * Has this patient been hospitalized within the prior 30 days at any hospital? No Coverage Notice Reviewer: [id number] Lerner Notice Issued Date-Time: 02/21/2018 15:00 Notice Type: IM Discharge Notice Notice Delivered To: Patient Relationship to Patient: Hearing Impaired Teacher Name: Delivery Method: HAND - Hand Delivered Florence Days: Prior Verbal Notification: Recipient Understood Notice: Yes Recipient Signature: Yes Med Rec Note Co-signed by Attending: Coverage Notice Comment: Reviewer: CARA Lerner Notice Issued Date-Time: 02/22/2018 8:40 Notice Type: Patient Choice Letter Notice Delivered To: Patient Relationship to Patient: Hearing Impaired Teacher Name: Delivery Method: HAND - Hand Delivered Florence Days: Prior Verbal Notification: Recipient Understood Notice: Yes Recipient Signature: Yes Med Rec Note Co-signed by Attending: Coverage Notice Comment: Last DP export: 02/22/18 8:17 Patient Name: JUNE LIANG Page 78660 at 1334 All edits/amendments must be made on the electronic document DICTATION DATE: 02/22/18 1333 SALES MERCHANDISE ASSOCIATE: HEATH 02/22/18 1333 RPT#: [id number] [place] DATE: STATUS: ADM IN [facility] [address] [place] [address] END OF REPORT
--- NOTE | ~2018-02-18 | MORECARE ---
CASE MANAGEMENT DISCHARGE SUMMARY PATIENT: JUNE LIANG UNIT: [id number] ADM DATE: 02/18/18 AGE: 87 : 29 SEX: F ROOM/BED: D.6282 AUTHOR: DENISE,DOC PHYSICIAN: REFERRING PHYSICIAN: LUIS CARLOS PEREIRA MD DATE OF SERVICE: 02/22/18 Discharge Plan Patient Name: JUNE LIANG Facility: [facility]:[place] : 1930 Planned Disposition: [facility] Facility Anticipated Discharge Date: 02/22/18 Discharge Date: Expected LOS: 4 Initial Reviewer: [id number] Initial Review Date: 02/18/2018 Generated: 02/22/18 9:56 am Comments DCP- Discharge Planning Updated by [id number]: Nicolas Lerner on 02/21/18 3:[address] Patient Name: JUNE LIANG Admission Status: ER Accout number: [id number] Admission Date: 02-18-2018 : 1930 Admission Diagnosis: Attending: LUIS CARLOS PEREIRA Current LOS: 3 Anticipated DC Date: Planned Disposition: SENIOR LIVING FACILITY Primary Insurance: MEDICARE A & B PLANNED EXTERNAL PROVIDER: WAITING PT'S DECISION Discharge Planning Comments: CM RECEIVED ORDER FOR INPATIENT REHAB, MET WITH PT IN ROOM TO DISCUSS DISCHARGE PLANNING AND NEEDS. PT REPORTS LIVING AT HOME INDEPENDENTLY AND ALONE AT [facility]. PT HAS A CANE WITH NO MEDICAL EQUIPMENT PROVIDER PREFERENCE. PT HAS PRIVATE DUTY CAREGIVER THAT WORKS BY THE HOUR NEEDED THAT PT PAYS VIEYRA FOR SERVICES NEEDED. CM DISCUSSED AVAILABILITY OF HOME HEALTH, REHAB SERVICES AND MEDICAL EQUIPMENT. PT WANTS REHAB AT [place] AND NO WHERE ELSE. PT REPORTS HER PAID CAREGIVER WILL PICK HER UP FOR DISCHARGE HOME. IMPORTANT MESSAGE FROM MEDICARE PROVIDED AND EXPLAINED. CM RECEIVED CALL FROM SUJATHA OF INPATIENT REHAB, PT HAS WALKED 500 FEET WITH THERAPY WHO HAS SIGNED OFF TO NURSING, PT WILL NOT BE ACCEPTED FOR INPATIENT REHAB. CM MET WITH PT WHO ALSO REPORTS GOING TO THE BATHROOM IN THE ROOM INDEPENDENTLY. CM EXPLAINED DECLINATION, DISCUSSED OUTPATIENT THERAPY, HOME HEALTH PHYSICAL THERAPY AND SENIOR LIVING FACILITY THERAPY. PT REPORTS BEING IN TOO MUCH PAIN TO GO HOME AND WILL CONSIDER HER OPTIONS AND LET CM KNOW SOON POSSIBLE. PT IS CONSIDERING SENIOR LIVING REHAB, REPORTS BEING IN TOO MUCH PAIN TO GO HOME BUT DID NOT WANT TO MAKE DECISION REGARDING FACILITY PREFERENCE TODAY. CM TO CONTINUE TO FOLLOW AND ASSIST NEEDED. Endodontic Assistant: Nicolas Lerner DCPIA - Discharge Planning Initial Assessment Updated by [id number]: Nicolas Lerner on 02/21/18 4:39 pm * Is the patient Alert and Oriented? Yes * How many steps to enter\exit or inside your home? NONE * PCP DR. PEREIRA * Pharmacy [facility]. * Preadmission Environment Home Alone * ADLs Independent * Equipment Cane * Other Equipment NO MEDICAL EQUIPMENT PROVIDER PREFERENCE * List name and contact numbers for known caregivers / representatives who currently or will assist patient after discharge: LATOYA HERNANDEZ, SON, WALE LIANG, SON, * Verbal permission to speak to the caregivers and representatives has been obtained from the patient. N/A * Community resources currently utilized Private Duty Care * Please name any agencies selected above. PRIVATE FILTER MACHINE OPERATOR * Additional services required to return to the preadmission environment? Yes * Can the patient safely return to the preadmission environment? Yes * Has this patient been hospitalized within the prior 30 days at any hospital? No Coverage Notice Reviewer: [id number] - Nicolas Lerner Notice Issued Date-Time: 02/21/2018 15:00 Notice Type: IM Discharge Notice Notice Delivered To: Patient Relationship to Patient: Junior Recruiter Name: Delivery Method: HAND - Hand Delivered Florence Days: Prior Verbal Notification: Recipient Understood Notice: Yes Recipient Signature: Yes Med Rec Note Co-signed by Attending: Coverage Notice Comment: Last DP export: 02/21/18 3:56 Patient Name: JUNE LIANG Page 53886 at 0856 All edits/amendments must be made on the electronic document DICTATION DATE: 02/22/18854 NEIGHBORHOOD AIDE: HEATH 02/22/18854 RPT#: [id number] DC DATE: STATUS: ADM IN [facility] [address] [place] [address] END OF REPORT
--- NOTE | ~2018-02-18 | MORECARE ---
CASE MANAGEMENT DISCHARGE SUMMARY PATIENT: JUNE LIANG UNIT: [id number] ADM DATE: 02/18/18 AGE: 87 : 29 SEX: F ROOM/BED: D.[facility] AUTHOR: DENISE,DOC PHYSICIAN: REFERRING PHYSICIAN: LUIS CARLOS PEREIRA MD DATE OF SERVICE: 02/21/18 Discharge Plan Patient Name: JUNE LIANG Facility: [facility]:[place] : 1930 Planned Disposition: Anticipated Discharge Date: Discharge Date: Expected LOS: Initial Reviewer: [id number] Initial Review Date: 02/18/2018 Generated: 02/21/18 5:46 pm DCPIA - Discharge Planning Initial Assessment Updated by [id number]: Nicolas Lerner on 02/21/18 4:39 pm * Is the patient Alert and Oriented? Yes * How many steps to enter\exit or inside your home? NONE * PCP DR. PEREIRA * Pharmacy [facility]. * Preadmission Environment Home Alone * ADLs Independent * Equipment Cane * Other Equipment NO MEDICAL EQUIPMENT PROVIDER PREFERENCE * List name and contact numbers for known caregivers / representatives who currently or will assist patient after discharge: LATOYA CRISTAL, SON, FLETCHER PERSAUD, * Verbal permission to speak to the caregivers and representatives has been obtained from the patient. N/A * Community resources currently utilized Private Duty Care * Please name any agencies selected above. PRIVATE BRAIDED RUG MAKER * Additional services required to return to the preadmission environment? Yes * Can the patient safely return to the preadmission environment? Yes * Has this patient been hospitalized within the prior 30 days at any hospital? No Coverage Notice Reviewer: [id number] Jimmy Lerner Notice Issued Date-Time: 02/21/2018 15:00 Notice Type: IM Discharge Notice Notice Delivered To: Patient Relationship to Patient: Accounting Reconciliation Clerk Name: Delivery Method: HAND - Hand Delivered Florence Days: Prior Verbal Notification: Recipient Understood Notice: Yes Recipient Signature: Yes Med Rec Note Co-signed by Attending: Coverage Notice Comment: Last DP export: 02/21/18 3:29 Patient Name: JUNE LIANG Page 81301 at 1646 All edits/amendments must be made on the electronic document DICTATION DATE: 02/21/181644 GREY INSPECTOR: HEATH 02/21/181644 RPT#: [id number] DC DATE: STATUS: ADM IN [facility] [address] [place] [address] END OF REPORT
--- NOTE | ~2018-02-18 | MORECARE ---
CASE MANAGEMENT DISCHARGE SUMMARY PATIENT: JUNE LIANG UNIT: [id number] ADM DATE: 02/18/18 AGE: 87 : 29 SEX: F ROOM/BED: D.0337 AUTHOR: DENISE,DOC PHYSICIAN: REFERRING PHYSICIAN: LUIS CARLOS PEREIRA MD DATE OF SERVICE: 02/22/18 Discharge Plan Patient Name: JUNE LIANG Facility: [facility]:[place] : 1930 Planned Disposition: [facility] Facility Anticipated Discharge Date: 02/22/18 Discharge Date: Expected LOS: 4 Initial Reviewer: [id number] Initial Review Date: 02/18/2018 Generated: 02/22/18 10:03 am Comments DCP- Discharge Planning Updated by [email or web address]: Nicolas Lerner on 02/21/18 3:[address] Patient Name: JUNE LIANG Admission Status: ER Accout number: [id number] Admission Date: 02-18-2018 : 1930 Admission Diagnosis: Attending: LUIS CARLOS PEREIRA Current LOS: 3 Anticipated DC Date: Planned Disposition: [facility]AC[facility] Primary Insurance: MEDICARE A & B PLANNED EXTERNAL PROVIDER: WAITING PT'S DECISION Discharge Planning Comments: CM RECEIVED ORDER FOR INPATIENT REHAB, MET WITH PT IN ROOM TO DISCUSS DISCHARGE PLANNING AND NEEDS. PT REPORTS LIVING AT HOME INDEPENDENTLY AND ALONE AT [facility]. PT HAS A CANE WITH NO MEDICAL EQUIPMENT PROVIDER PREFERENCE. PT HAS PRIVATE DUTY CAREGIVER THAT WORKS BY THE HOUR NEEDED THAT PT PAYS VIEYRA FOR SERVICES NEEDED. CM DISCUSSED AVAILABILITY OF HOME HEALTH, REHAB SERVICES AND MEDICAL EQUIPMENT. PT WANTS REHAB AT [place] AND NO WHERE ELSE. PT REPORTS HER PAID CAREGIVER WILL PICK HER UP FOR DISCHARGE HOME. IMPORTANT MESSAGE FROM MEDICARE PROVIDED AND EXPLAINED. CM RECEIVED CALL FROM SUJATHA OF INPATIENT REHAB, PT HAS WALKED 500 FEET WITH THERAPY WHO HAS SIGNED OFF TO NURSING, PT WILL NOT BE ACCEPTED FOR INPATIENT REHAB. CM MET WITH PT WHO ALSO REPORTS GOING TO THE BATHROOM IN THE ROOM INDEPENDENTLY. CM EXPLAINED DECLINATION, DISCUSSED OUTPATIENT THERAPY, HOME HEALTH PHYSICAL THERAPY AND [facility]ILITY THERAPY. PT REPORTS BEING IN TOO MUCH PAIN TO GO HOME AND WILL CONSIDER HER OPTIONS AND LET CM KNOW SOON POSSIBLE. PT IS CONSIDERING [facility] RE[facility], REPORTS BEING IN TOO MUCH PAIN TO GO HOME BUT DID NOT WANT TO MAKE DECISION REGARDING FACILITY PREFERENCE TODAY. CM TO CONTINUE TO FOLLOW AND ASSIST NEEDED. Design Cell Engineer: Nicolas Lerner DCPIA - Discharge Planning Initial Assessment Updated by [email or web address]: Nicolas Lerner on 02/21/18 4:39 pm * Is the patient Alert and Oriented? Yes * How many steps to enter\exit or inside your home? NONE * PCP DR. PEREIRA * Pharmacy [facility]. * Preadmission Environment Home Alone * ADLs Independent * Equipment Cane * Other Equipment NO MEDICAL EQUIPMENT PROVIDER PREFERENCE * List name and contact numbers for known caregivers / representatives who currently or will assist patient after discharge: LATOYA MARY, SON, WALE LIANG, SON, * Verbal permission to speak to the caregivers and representatives has been obtained from the patient. N/A * Community resources currently utilized Private Duty Care * Please name any agencies selected above. PRIVATE MULTIPLE RESAW OPERATOR * Additional services required to return to the preadmission environment? Yes * Can the patient safely return to the preadmission environment? Yes * Has this patient been hospitalized within the prior 30 days at any hospital? No External Providers External Provider: [facility] and [facility] Next Contact Date: 02/22/2018 Service Request Date: Service Type: Resolution: Reviewer: Comments: Coverage Notice Reviewer: [id number] - Nicolas Lerner Notice Issued Date-Time: 02/21/2018 15:00 Notice Type: IM Discharge Notice Notice Delivered To: Patient Relationship to Patient: Retail Loss Prevention Investigator Name: Delivery Method: HAND - Hand Delivered Florence Days: Prior Verbal Notification: Recipient Understood Notice: Yes Recipient Signature: Yes Med Rec Note Co-signed by Attending: Coverage Notice Comment: Last DP export: 02/22/18 7:56 Patient Name: JUNE LIANG Page 61556 at 0903 All edits/amendments must be made on the electronic document DICTATION DATE: 02/22/18901 PROFESSIONAL TUTOR: HEATH 02/22/18901 RPT#: [id number] [place] DATE: STATUS: ADM IN [address] [place] [address] END OF REPORT
--- NOTE | ~2018-02-18 | MORECARE ---
CASE MANAGEMENT DISCHARGE SUMMARY PATIENT: JUNE LIANG UNIT: [id number] ADM DATE: 02/18/18 AGE: 87 : 29 SEX: F ROOM/BED: D.2111 AUTHOR: MINISTERIO WALKER PHYSICIAN: REFERRING PHYSICIAN: LUIS CARLOS PEREIRA MD DATE OF SERVICE: 02/21/18 Discharge Plan Patient Name: JUNE LIANG Facility: [facility]:[place] : 1930 Planned Disposition: Anticipated Discharge Date: Discharge Date: Expected LOS: Initial Reviewer: [email or web address] Initial Review Date: 02/18/2018 Generated: 02/21/18 5:29 pm Last DP export: 02/21/18 3:19 Patient Name: JUNE LIANG Page 90221 at 1629 All edits/amendments must be made on the electronic document DICTATION DATE: 02/21/181628 FINGER BUFF SEWER: HEATH 02/21/181628 RPT#: [id number] DC DATE: STATUS: ADM IN [facility] [address] [place] [address] END OF REPORT
[~2018-02-18 07:52] MED LIST changes: +LASIX40 MG PO
[2018-02-18 08:32] LABS: BASOPHILS 0.6 % (0-2); EOSINOPHILS 1.8 % (0-7); HEMATOCRIT 39.7 % (36.0-48.0); HEMOGLOBIN 13.7 g/dL (12-16); IMMATURE GRANULOCYTES 0.2 % (0-5); LYMPHOCYTES 13.2 % (15-50); MCH 31.8 pg (26.0-34.0); MCHC 34.5 g/dL (31.0-37.0); MCV 92.1 fL (80.0-100.0); MONOCYTES 15.1 % (2-11); NEUTROPHILS 69.1 % (40-80); PLATELET COUNT 371 10x3/uL (130-400); RBC 4.31 10x6/uL (4.00-5.40); RDW 12.5 % (11.5-14.5); WBC 10.6 10x3/uL (4.8-10.8)
[2018-02-18 08:45] LABS: ALKALINE PHOSPHATASE 58 U/L (46-116); ALT (SGPT) 18 U/L (10-68); BILIRUBIN - TOTAL 0.48 mg/dL (0.2-1.3); CALC OSMOLALITY 269 mosm/kg (275-300); CALCIUM 9.2 mg/dL (8.5-10.1); CHLORIDE - SERUM 96 mmol/L (98-107); CREATININE - SERUM 0.8 mg/dL (0.6-1.3); POTASSIUM - SERUM 3.4 mmol/L (3.5-5.1); PROTEIN - SERUM 6.7 g/dL (6.4-8.2); SODIUM 134 mmol/L (136-145); UREA NITROGEN 16 mg/dL (7-18); eGFR NON AFRICAN AMERICAN 72 mL/min (90-120)
[2018-02-18 08:48] LABS: GLUCOSE 123 mg/dL (74-106)
[2018-02-18 08:56] LABS: CREATINE KINASE 56 UL (21-215); LIPASE 96 U/L (73-393); PRO BNP 60 pg/mL (0-450); THYROID STIMULATING HORMONE 0.72 uIU/mL (0.36-3.74); TROPONIN-I < 0.017 ng/mL (0.000-0.060)
[2018-02-18] MEDS ORDERED: DIOVAN80 MG PO (12:04)
[2018-02-18] MEDS ORDERED: DIOVAN40 MG PO (12:05)
[2018-02-18] MEDS ORDERED: NOVOLIN 70/30 110 ML SC (12:09)
[2018-02-18] MEDS ORDERED: MIRALAX17 GM PO (12:10)
[2018-02-18 12:42] VITALS: BP 175/75; BMI 25.7
[2018-02-18 15:58] VITALS: BP 175/75
[2018-02-18 21:05] VITALS: BP 144/69
[2018-02-19 01:11] VITALS: BP 105/48; BP 180/84
[2018-02-19 05:15] LABS: BASOPHILS 0.3 % (0-2); EOSINOPHILS 1.3 % (0-7); HEMATOCRIT 39.1 % (36.0-48.0); HEMOGLOBIN 13.4 g/dL (12-16); IMMATURE GRANULOCYTES 0.2 % (0-5); LYMPHOCYTES 14.2 % (15-50); MCH 31.5 pg (26.0-34.0); MCHC 34.3 g/dL (31.0-37.0); MEAN PLATELET VOLUME 9.5 fL (7.4-10.4); MONOCYTES 14.1 % (2-11); NEUTROPHILS 69.9 % (40-80); PLATELET COUNT 372 10x3/uL (130-400); RBC 4.25 10x6/uL (4.00-5.40); RDW 12.8 % (11.5-14.5)
[2018-02-19 05:33] LABS: ANION GAP 9.2 mmol/L (8-16); C-REACTIVE PROTEIN 0.7 mg/dL (0.0-0.9); CALCIUM 9.1 mg/dL (8.5-10.1); CARBON DIOXIDE 30.3 mmol/L (21.0-32.0); CREATININE - SERUM 0.8 mg/dL (0.6-1.3); MAGNESIUM - SERUM 1.5 mg/dL (1.8-2.4); POTASSIUM - SERUM 3.5 mmol/L (3.5-5.1)
[2018-02-19 05:45] VITALS: BP 159/93
[2018-02-19 08:17] VITALS: BP 162/63
[2018-02-19 12:10] VITALS: Ht 160 cm; Wt 59.6 kg
[2018-02-19 15:31] VITALS: BP 153/66
[2018-02-19 20:48] VITALS: BP 163/76
[2018-02-20 01:31] VITALS: BP 163/81
[2018-02-20 05:53] LABS: BASOPHILS 0.4 % (0-2); EOSINOPHILS 1.6 % (0-7); HEMOGLOBIN 13.7 g/dL (12-16); IMMATURE GRANULOCYTES 0.3 % (0-5); LYMPHOCYTES 16.6 % (15-50); MCH 31.5 pg (26.0-34.0); MCHC 34.3 g/dL (31.0-37.0); MEAN PLATELET VOLUME 10.2 fL (7.4-10.4); MONOCYTES 15.5 % (2-11); NEUTROPHILS 65.6 % (40-80); PLATELET COUNT 360 10x3/uL (130-400); RBC 4.35 10x6/uL (4.00-5.40); RDW 12.7 % (11.5-14.5); WBC 11.5 10x3/uL (4.8-10.8)
[2018-02-20 06:05] VITALS: BP 161/83
[2018-02-20 06:16] LABS: CALC OSMOLALITY 273 mosm/kg (275-300); CALCIUM 9.2 mg/dL (8.5-10.1); CARBON DIOXIDE 26.3 mmol/L (21.0-32.0); CHLORIDE - SERUM 96 mmol/L (98-107); CREATININE - SERUM 0.7 mg/dL (0.6-1.3); GLUCOSE 177 mg/dL (74-106); POTASSIUM - SERUM 3.8 mmol/L (3.5-5.1); SODIUM 134 mmol/L (136-145); UREA NITROGEN 17 mg/dL (7-18); eGFR NON AFRICAN AMERICAN 83 mL/min (90-120)
[2018-02-20 08:42] VITALS: BP 131/75
[2018-02-20 10:07] LABS: ERYTHROCYTE SEDIMENTATION RATE 10 mm/hr (0-42)
[2018-02-20 11:48] VITALS: BP 135/75
[2018-02-20 16:38] VITALS: BP 110/62
[2018-02-20 20:00] VITALS: BP 118/61
[2018-02-21] VITALS: BP 97/53
[2018-02-21 04:00] VITALS: BP 97/48
[2018-02-21 05:15] LABS: APPEARANCE TURBID (CLEAR); BACTERIA MANY /hpf (NONE SEEN); BILIRUBIN NEGATIVE (NEGATIVE); COLOR YELLOW (YELLOW); EPITHELIAL CELLS 0-5 /hpf (0-5); GLUCOSE NEGATIVE (NEGATIVE); KETONE NEGATIVE (NEGATIVE); NITRITE NEGATIVE (NEGATIVE); PROTEIN TRACE mg/dL (NEGATIVE); RED CELLS - URINE 0-5 /hpf (0-5); SPECIFIC GRAVITY 1.015 (1.005-1.020); UROBILINOGEN NORMAL (NORMAL); WHITE CELLS - URINE >50 /hpf (0-5)
[2018-02-21 08:15] VITALS: BP 115/61
[2018-02-21 11:48] VITALS: BP 145/78
[2018-02-21 15:28] VITALS: BP 123/68
[2018-02-21 20:00] VITALS: BP 136/75
[2018-02-22] VITALS: BP 116/70
[2018-02-22 04:00] VITALS: BP 154/70
[2018-02-22 08:02] VITALS: BP 126/66
[2018-02-22 11:37] VITALS: BP 124/80
== END 2018-02-22 14:18 | DRG 558 ==
LOC: D.ER 07:52 → D.M2 09:52 → D.EDHOLD 09:52 → D.M2 10:09 → D.SDCHOLD 02-21 13:29 → D.M2 02-21 13:31
PROVIDERS: Family Medicine
PROC: 3E0U33Z Introduction of Anti-inflammatory into Joints, Percutaneous Approach (ICD-10-PCS; principal; 2018-02-21)
PROC: 3E0U3BZ Introduction of Anesthetic Agent into Joints, Percutaneous Approach (ICD-10-PCS; 2018-02-21)
DX: M70.61 Trochanteric bursitis, right hip (principal); E11.9 Type 2 diabetes mellitus without complications; F41.9 Anxiety disorder, unspecified; I10 Essential (primary) hypertension; R51 Headache; M54.5 Low back pain; Z95.0 Presence of cardiac pacemaker

== ENCOUNTER → 2018-03-29 13:11 | Outpatient (CLI) | payer MEDICARE, OTHER ==
[2018-02-19 12:10] VITALS: BMI 25.6
[~2018-03-29 13:11] MED LIST changes: +MIRALAX17 GM PO; +NOVOLIN 70/30 110 ML SC
== END | disposition home or self-care (01) ==
LOC: D.CT 13:11
DX: R10.9 Unspecified abdominal pain (principal)

== ENCOUNTER 2018-06-29 04:47 | Emergency (ER) | payer MEDICARE, OTHER ==
[2018-02-19 12:10] VITALS: Ht 160 cm
[2018-06-29 06:57] VITALS: BP 195/89
== END 2018-06-29 06:59 | disposition home or self-care (01) ==
LOC: D.ER 04:47
DX: S70.02XA Contusion of left hip, initial encounter (principal); S70.01XA Contusion of right hip, initial encounter; W18.30XA Fall on same level, unspecified, initial encounter; Y93.89 Activity, other specified; Y92.012 Bathroom of single-family (private) house as the place of occurrence of the external cause; S09.90XA Unspecified injury of head, initial encounter; S83.92XA Sprain of unspecified site of left knee, initial encounter; M25.552 Pain in left hip; M25.551 Pain in right hip

== ENCOUNTER 2018-10-14 02:17 | Emergency (ER) | payer MEDICARE, OTHER ==
[~2018-10-14] VITALS: Ht 160 cm; Wt 63.6 kg
[2018-10-14 02:20] VITALS: Ht 160 cm; Wt 63.6 kg
[2018-10-14 02:52] LABS: BASOPHILS 0.6 % (0-2); HEMATOCRIT 42.8 % (36.0-48.0); HEMOGLOBIN 14.8 g/dL (12-16); IMMATURE GRANULOCYTES 0.3 % (0-5); LYMPHOCYTES 29.4 % (15-50); MCH 30.8 pg (26.0-34.0); MCHC 34.6 g/dL (31.0-37.0); MCV 89.2 fL (80.0-100.0); MEAN PLATELET VOLUME 8.9 fL (7.4-10.4); MONOCYTES 14.5 % (2-11); NEUTROPHILS 53.2 % (40-80); PLATELET COUNT 378 10x3/uL (130-400); RDW 12.6 % (11.5-14.5); WBC 9.7 10x3/uL (4.8-10.8)
[2018-10-14 02:59] LABS: APPEARANCE CLEAR (CLEAR); BILIRUBIN NEGATIVE (NEGATIVE); COLOR YELLOW (YELLOW); GLUCOSE NEGATIVE (NEGATIVE); KETONE NEGATIVE (NEGATIVE); NITRITE NEGATIVE (NEGATIVE); PROTEIN NEGATIVE (NEGATIVE); SPECIFIC GRAVITY 1.005 (1.005-1.020); UROBILINOGEN NORMAL (NORMAL); WHITE CELLS - URINE 0-5 /hpf (0-5)
[2018-10-14 03:08] LABS: ALBUMIN 3.5 g/dL (3.4-5.0); ANION GAP 10.4 mmol/L (8-16); BILIRUBIN - TOTAL 0.29 mg/dL (0.2-1.3); CALCIUM 9.8 mg/dL (8.5-10.1); POTASSIUM - SERUM 3.4 mmol/L (3.5-5.1); PROTEIN - SERUM 7.7 g/dL (6.4-8.2)
[2018-10-14 04:35] VITALS: BP 187/81
== END 2018-10-14 04:35 | disposition home or self-care (01) ==
LOC: D.ER 02:17
PROVIDERS: Family Medicine
DX: M54.5 Low back pain (principal); F41.9 Anxiety disorder, unspecified

== ENCOUNTER 2018-11-16 15:28 | Emergency (ER) | payer MEDICARE, OTHER ==
[~2018-11-16] VITALS: Ht 160 cm; Wt 63.2 kg
[2018-11-16 15:29] VITALS: Ht 160 cm; Wt 63.2 kg
[2018-11-16] MEDS ORDERED: ATIVAN1 MG PO (15:42)
[2018-11-16 18:14] VITALS: BP 153/89
== END 2018-11-16 18:16 | disposition home or self-care (01) ==
LOC: D.ER 15:28
DX: S51.812A Laceration without foreign body of left forearm, initial encounter (principal); S51.811A Laceration without foreign body of right forearm, initial encounter; W01.0XXA Fall on same level from slipping, tripping and stumbling without subsequent striking against object, initial encounter; Z95.0 Presence of cardiac pacemaker; M41.9 Scoliosis, unspecified